=== PATIENT | male | born 1985 | race Caucasian/White ===

== ENCOUNTER 2024-12-06 22:55 | Emergency (ER) | payer OTHER, SELFPAY ==
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
--- NOTE | 2024-12-06 23:02 | MHC.EDTECH ---
patient declined vitals. Asked that I come back and do them later.
[2024-12-06 23:03] VITALS: BP 142/86; PULSE 86
[2024-12-06 23:11] VITALS: BP 150/79; PULSE 157; RESP 24; TEMP 39.4; O2SAT 96; BMI 28.1
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
--- NOTE | 2024-12-06 23:25 | ECG_ITS ---
Test Reason : TACHYCARDIA Blood Pressure : */* mmHG Vent. Rate : 151 BPM Atrial Rate : 151 BPM P-R Int : 124 ms QRS Dur : 68 ms QT Int : 262 ms P-R-T Axes : 64 27 63 degrees QTcB Int : 415 ms Sinus tachycardia Nonspecific T wave abnormality Abnormal ECG No previous ECGs available Referred By: Surya Craft Electronically Signed By: ODALIS VALENCIA MD
[2024-12-06 23:51] VITALS: BP 127/76; PULSE 144; RESP 21; TEMP 37.9; O2SAT 95
[2024-12-06 23:56] LABS: Basophils Absolute Auto 0.1 X10*3/uL (0.0-0.2); Basophils Percent Auto 0.5 % (0-2); Eosinophils Percent Auto 0.2 % (0-4); Hematocrit 43.1 % (42.0-52.0); Hemoglobin 14.6 g/dl (14.0-18.0); Imm Gran Abs Auto 0.07 X10*3/uL (0.00-0.03); Imm Gran Pct Auto 0.6 % (0.0-0.4); Lymphocytes Absolute Auto 0.7 X10*3/uL (1.2-4.9); Lymphocytes Percent Auto 5.3 % (20-40); MANUAL DIFF FLAG NO; Mean Corpuscular HGB Conc 33.9 g/dl (31.0-36.0); Mean Corpuscular Hemoglobin 31.9 pg (27.0-33.0); Mean Corpuscular Volume 94.1 fL (80.0-98.0); Monocytes Absolute Auto 0.6 X10*3/uL (0.1-1.2); Monocytes Percent Auto 4.9 % (2-11); Neutrophils Percent Auto 88.5 % (45-73); Platelet Count 343 X10*3/uL (160-400); Red Blood Count 4.58 X10*6/uL (4.60-5.80); Red Cell Distribution Width 12.6 % (11.0-16.0); White Blood Count 12.4 X10*3/uL (4.8-10.8)
[2024-12-07 00:09] LABS: Alanine Aminotransferase 27 U/L (0-40); Albumin Level 4.8 g/dL (3.5-5.0); Alkaline Phosphatase 85 U/L (39-117); Anion Gap 17 (12-20); Aspartate Amino Transferase 25 U/L (5-37); Bilirubin Total 0.6 mg/dL (0.0-1.0); Blood Urea Nitrogen 16 mg/dL (9-16); Calcium 9.2 mg/dL (8.4-10.2); Carbon Dioxide 19 mmol/L (22-29); Chloride 110 mmol/L (96-108); Creatinine Clr Calc Pharmacy 83.7; Estimated Glomerular Filt Rate > 60; Glucose Random 92 mg/dL (60-115); Magnesium 2.2 mg/dL (1.6-2.6); Potassium 3.8 mmol/L (3.3-5.1); Sodium 142 mmol/L (135-145); Total Protein 8.5 g/dL (6.5-8.0)
[2024-12-07 00:10] LABS: Ethanol < 10 mg/dL
[2024-12-07 00:23] LABS: Acetaminophen LAB < 3 mcg/mL (<30); Salicylate < 5.0 mg/dL (15-30)
--- NOTE | 2024-12-07 00:25 | PC.NURSE ---
pt now alert and responding to questions/following commands. denies drug use
[2024-12-07 00:58] VITALS: BP 120/73; PULSE 125; RESP 23; TEMP 37.8; O2SAT 96
[2024-12-07 01:36] VITALS: BP 130/75; PULSE 117; RESP 20; TEMP 37.8; O2SAT 95
[2024-12-07 01:37] VITALS: BP 130/75; PULSE 117; RESP 20; TEMP 37.8; O2SAT 95
== END 2024-12-07 01:38 | disposition home or self-care (01) ==
PROVIDERS: Emergency Provider Internal Medicine
DX: S09.93XA Unspecified injury of face, initial encounter (principal); R00.0 Tachycardia, unspecified; R51.9 Headache, unspecified; M54.2 Cervicalgia; V43.02XA Car driver injured in collision with other type car in nontraffic accident, initial encounter; Y93.9 Activity, unspecified; Y92.410 Unspecified street and highway as the place of occurrence of the external cause; Y99.8 Other external cause status; Z51.81 Encounter for therapeutic drug level monitoring; Z79.899 Other long term (current) drug therapy
CPT/HCPCS: 36415; 70450; 72125; 80053; 80143; 80179; 80307; 83735; 85025; 93005; 99284

== ENCOUNTER → 2024-12-06 23:24 | Outpatient (BNV) | payer OTHER, SELFPAY | PROVIDERS: Emergency Provider Internal Medicine; Visit Provider Radiology Diagnostic Radiology | DX: R25.1 Tremor, unspecified (principal) | CPT/HCPCS: 70450; 72125 ==

== ENCOUNTER → 2024-12-06 23:25 | Outpatient (BNV) | payer OTHER, SELFPAY | PROVIDERS: Emergency Provider Internal Medicine; Visit Provider Internal Medicine Cardiovascular Disease | DX: R00.0 Tachycardia, unspecified (principal) | CPT/HCPCS: 93010 ==